=== PATIENT | male | born 1975 | race Caucasian/White ===

== ENCOUNTER 2021-05-11 23:12 | Emergency (ER) | payer SELFPAY ==
[~2021-05-11] VITALS: Ht 165.1 cm; Wt 167.8 kg
[2021-05-12 03:00] VITALS: BP 162/117
[2021-05-12] MEDS ORDERED: KETOROLAC TROMETH 60MG/2ML VIAL IM ONE (03:00)
[2021-05-12] MEDS ORDERED: ONDANSETRON ODT 4 MG TAB PO ONE (04:30)
[2021-05-12] MEDS ORDERED: HYDROcodone-ACET 10/325MG TAB PO ONE (04:30)
== END 2021-05-12 05:26 | disposition home or self-care (01) ==
LOC: ER 23:12
DX: M54.16 Radiculopathy, lumbar region (principal); E11.9 Type 2 diabetes mellitus without complications; I10 Essential (primary) hypertension
CPT/HCPCS: 96372; 99283; J1885; Q0162

== ENCOUNTER 2023-05-26 13:10 | Emergency (ER) | payer MEDICAID ==
[~2023-05-26] VITALS: Ht 162.6 cm; Wt 157.4 kg
[2023-05-26 14:58] LABS: Urine Bacteria NONE SEEN /hpf (None Seen); Urine Blood Negative /uL (Negative); Urine Mucus FEW (None Seen); Urine Specific Gravity 1.022 (1.001-1.035); Urine WBC 3 /hpf (0 - 3)
[2023-05-26 15:33] LABS: Basophils # (auto) 0.1 10 ^3/uL (0-0.2); Basophils % (auto) 0.5 % (0.0-2.0); Eosinophils # (auto) 0.1 10 ^3/uL (0-0.8); Eosinophils % (auto) 1.5 % (0.0-7.0); Hematocrit 49.8 % (41.0-53.0); Lymphocytes % (auto) 32.2 % (10.0-50.0); Mean Corpuscular Hemoglobin 29.4 pg (28.0-32.0); Mean Corpuscular Hgb Conc. 34.1 g/dL (32.0-36.0); Mean Corpuscular Volume 86.3 fL (80.0-100.0); Monocytes # (auto) 0.7 10 ^3/uL (0-1.3); Monocytes % (auto) 7.2 % (0.0-12.0); Neutrophils # (auto) 5.5 10 ^3/uL (1.6-8.6); Neutrophils % (auto) 58.6 % (37.0-80.0); Nucleated Red Blood Cells % 0.4 %; Red Blood Cells 5.77 10^6/uL (4.5-5.90); Red Cell Distribution Width 14.1 % (11.8-14.3); White Blood Cell 9.4 10^3/uL (4.4-10.8)
[2023-05-26 15:58] LABS: Albumin 3.6 g/dL (3.4-5.0); Calcium 8.9 mg/dL (8.5-10.1); Potassium 4.1 mmol/L (3.5-5.1)
[2023-05-26 16:02] LABS: BUN/Creatinine Ratio 16.8 (10.0-20.0)
[2023-05-26 16:03] LABS: Bilirubin, Total 0.8 mg/dL (0.2-1.0)
[2023-05-26 16:19] LABS: INR 1.09 (0.9-1.15); Partial Thromboplastin Time 27.9 SEC (24.5-34.5)
[2023-05-26] MEDS ORDERED: IBU600T PO (16:31)
[2023-05-26] MEDS ORDERED: KETOROLAC TROMETH 60MG/2ML VIAL IM ONE (17:00)
[2023-05-26 17:07] VITALS: BP 151/102
[2023-05-26] MEDS ORDERED: LISI10TA34 PO (17:16)
== END 2023-05-26 17:19 | disposition home or self-care (01) ==
LOC: EDBD 13:10 → ER 13:10
DX: R51.9 Headache, unspecified (principal); I10 Essential (primary) hypertension; E11.9 Type 2 diabetes mellitus without complications
CPT/HCPCS: 36415; 70450; 71045; 80053; 81001; 82962; 84484; 85025; 85610; 85730; 93005; 96372; 99285; J1885